=== PATIENT | female | born 1960 | race African-American/Black ===

== ENCOUNTER 2018-06-22 01:07 | Inpatient (IN) | payer MEDICARE, MEDICAID ==
[2018-06-22] MEDS ORDERED: Heparin 25,000 units/D5W 500 ML ONE (01:16)
[2018-06-22 02:18] LABS: Troponin I 9.531 ng/mL (< 0.028)
[2018-06-22 02:48] LABS: Lactic Acid 1.8 mmol/L (0.5-2.2)
--- NOTE | 2018-06-22 02:48 | PDOC.FPRHP ---
- History of Present Illness Chief Complaint: NSTEMI History of Present Illness: Patient is a 57YO AAF with a PMH significant for a CVA w/ R-sided hemiplegia & dysphagia, a known seizure disorder, DM, HLD, and HTN who was transferred from [facility] in [place] after being found to have a troponin of 4.05. Per EMS & ED records , EMS in [place] was called to [facility] where the patient resides due to seizure activity. The patient was given 2.5mg of versed and has 3 seizures in the ambulance on the way to the Ed in [place]. Once she arrived at the ED she was given 2g IV keppra and had no further seizure activity. Labs were significant for a lactate of 3.1, a BG level of 426, and a troponin of 4.05. Her ECG on presentation to our ED was negative for any acute ischemic changes but her repeat troponin level was even higher at 9.531. She was then continued on a heparin drip and admitted for evaluation and management of an NSTEMI as well as multiple metabolic derangements and AMS 2/2 postictal confusion vs. infection vs. NSTEMI vs. an acute intracranial process. ED Course: Patient was given 2g IV Keppra, one dose of IV Zosyn, 325mg ASA, & started on a heparin drip in the outside ED. - Allergies/Adverse Reactions Allergies Allergy/AdvReac Type Severity Reaction Status Date / Time iodine Allergy Verified 06/22/18 06:24 levofloxacin [From Levaquin] Allergy Verified 06/22/18 06:24 meperidine [From Demerol] Allergy Verified 06/22/18 06:24 vancomycin Allergy Verified 06/22/18 06:24 - Home Medications Medication Instructions Recorded Confirmed Type Ferrous Sulfate [Iron] 325 mg PO DAILY 11/11/16 11/11/16 History Lisinopril [Zestril] 5 mg PO DAILY 11/11/16 06/22/18 History Omeprazole 20 mg PO DAILY 11/11/16 11/11/16 History QUEtiapine Fumarate [SEROquel] 200 mg PO BID 11/11/16 06/22/18 History Sertraline HCl [Zoloft] 50 mg PO DAILY 11/11/16 06/22/18 History hydrOXYzine Pamoate 50 mg PO DAILY PRN 11/11/16 11/11/16 History metFORMIN [Glucophage] 500 mg PO BID-WM 11/11/16 11/11/16 History Amoxicillin/Potassium Clav 875 mg PO Q12HR #14 tab 11/27/16 Rx [Augmentin] Aspirin [Aspirin Chewable Tablet] 81 mg PO DAILY #30 tab 11/27/16 06/22/18 Rx Carvedilol [Coreg] 3.125 mg PO BID-WM tab 11/27/16 06/22/18 Rx Dronabinol [Marinol] 5 mg PO BID-AC #30 cap 11/27/16 Rx Pantoprazole [Protonix] 40 mg PO BID #60 pk 11/27/16 Rx Saccharomyces boulardii [Florastor] 250 mg PO BID #60 cap 11/27/16 Rx cloNIDine [Qhapuyqe-SAX-6 Patch] 0.1 mg TD Q7D patch 11/27/16 Rx metroNIDAZOLE [Flagyl] 500 mg PO TID #12 tab 11/27/16 Rx Atorvastatin Calcium 10 mg PO DAILY 06/22/18 06/22/18 History levETIRAcetam [Keppra Oral 1,000 mg PO QAM 06/22/18 06/22/18 History Solution] levETIRAcetam [Keppra] 2,000 mg PO HS 06/22/18 06/22/18 History risperiDONE [Risperdal] 1 mg PO BID 06/22/18 06/22/18 History - History PMHx: h/o CVA w/ residual R-sided hemiplegia & dysphagia, SLE, HTN, DM, HLD, CHF , GERD, Bipolar I, schizoaffective disorder, anxiety/depression, OA, h/o DVT PSHx: C/S, parathyroidectomy, vein ligation & stripping, IVC filter placement FHx: N/A Social: Unable to obtain 2/2 AMS. - Review of Systems ROS unobtainable: due to mental status - Vital signs BP: 134/91 HR: 113 RR: 21 Tmax: 99.6F Pox: 95% on RA Wt: 66kg - Physical Exam Constitutional: NAD HEENT: PERRLA, grossly normal vision, grossly normal hearing, other (Unable to assess EOM or oropharynx as patient was unable to follow commands.) Neck: FROM Heart: RRR, normal S1/S2, no murmurs/rubs/gallops, pulses present, no edema Lungs: CTAB, no respiratory distress, good air movement, no rales/rhonchi, no wheezing Abdomen: soft, non-tender, bowel sounds present, no masses/distention Musculoskeletal: normal structure, other (decreased ROM in right extremities) Neurological: normal sensation, other (R-sided hemiplegia noted in right extremities. Otherwise, no obvious focal deficits noted on exam.) Skin: good turgor, no jaundice, other (large hypopigmented patch over right congregational) Heme/Lymphatic: no unusual bruising or bleeding Psychiatric: other (Unable to assess as patient was not responding appropriately to questions and unable to follow commands.) FMR H&P: Results - Labs Result Diagrams: 06/22/18 07:53 06/22/18 01:52 - Radiology Interpretation Chest x-ray Status: report reviewed by me (Possible LLL PNA per outside ED CXR w/ B/L bibasilar atelectasis) CT scan - head Status: report reviewed by me (No acute changes.) FMR H&P: A/P - Problem List (1) NSTEMI (non-ST elevated myocardial infarction) Current Visit: Yes Status: Acute Code(s): I21.4 - NON-ST ELEVATION (NSTEMI) MYOCARDIAL INFARCTION (2) Status epilepticus Current Visit: Yes Status: Acute Code(s): G40.901 - EPILEPSY, UNSP, NOT INTRACTABLE, WITH STATUS EPILEPTICUS (3) Lactic acidosis Current Visit: Yes Status: Acute Code(s): E87.2 - ACIDOSIS (4) Hyperglycemia Current Visit: Yes Status: Acute Code(s): R73.9 - HYPERGLYCEMIA, UNSPECIFIED (5) Abnormal cardiac enzyme level Current Visit: No Status: Acute Code(s): R74.8 - ABNORMAL LEVELS OF OTHER SERUM ENZYMES Comment: prob due to demand ischemia/acute CVA (6) Seizure disorder Current Visit: Yes Status: Acute Code(s): G40.909 - EPILEPSY, UNSP, NOT INTRACTABLE, WITHOUT STATUS EPILEPTICUS (7) DM type 2 (diabetes mellitus, type 2) Current Visit: No Status: Chronic (8) Altered mental status Current Visit: Yes Status: Acute Code(s): R41.82 - ALTERED MENTAL STATUS, UNSPECIFIED (9) Schizoaffective disorder Current Visit: Yes Status: Acute Code(s): F25.9 - SCHIZOAFFECTIVE DISORDER, UNSPECIFIED (10) Bipolar 1 disorder Current Visit: Yes Status: Acute Code(s): F31.9 - BIPOLAR DISORDER, UNSPECIFIED (11) HTN (hypertension) Current Visit: Yes Status: Acute Code(s): I10 - ESSENTIAL (PRIMARY) HYPERTENSION (12) Hypertension Current Visit: No Status: Chronic Code(s): I10 - ESSENTIAL (PRIMARY) HYPERTENSION Qualifiers: Hypertension type: essential hypertension Qualified Code(s): I10 - Essential (primary) hypertension (13) HLD (hyperlipidemia) Current Visit: Yes Status: Acute Code(s): E78.5 - HYPERLIPIDEMIA, UNSPECIFIED (14) GERD (gastroesophageal reflux disease) Current Visit: Yes Status: Acute Code(s): K21.9 - GASTRO-ESOPHAGEAL REFLUX DISEASE WITHOUT ESOPHAGITIS (15) SLE (systemic lupus erythematosus) Current Visit: Yes Status: Acute Code(s): M32.9 - SYSTEMIC LUPUS ERYTHEMATOSUS, UNSPECIFIED (16) History of CVA with residual deficit Current Visit: Yes Status: Acute Code(s): I69.30 - UNSPECIFIED SEQUELAE OF CEREBRAL INFARCTION (17) Anxiety Current Visit: Yes Status: Acute Code(s): F41.9 - ANXIETY DISORDER, UNSPECIFIED (18) Depression Current Visit: Yes Status: Acute Code(s): F32.9 - MAJOR DEPRESSIVE DISORDER , SINGLE EPISODE, UNSPECIFIED - Plan Ms. Daniel is a 57YO AAF with a PMH significant for a CVA w/ residual R-sided hemiplegia & dysphagia, HTN, HLD, DMII, and a known seizure disorder who was transferred from [facility] in [place] after being found to have had an NSTEMI w/ a troponin elevated at 4.05. 1. NSTEMI: - troponin at outside ED was 4.05 & repeat trop at our facility was 9.531. - Will continue heparin drip that was started in the outside ED & hold 325 of ASA for now. - Will start on a high potency statin. Fasting AM lipid panel ordered. - Will consult cardiology to assess the need for possible operative intervention. - Will continue trending troponins. - Will continue topical nitroglycerin & resume home BB dose. 2. Status Epilepticus: - s/p 2.5mg versed & 2g IV keppra w/ no sz activity since. - Will order dilantin and keppra levels as these are her home medications to ensure compliance. - Will order seizure precautions and resume home medications. 3. Lactic Acidosis: - Lactate elevated at 3.1 in outside ED. - Likely 2/2 seizures. - Downtrended to 1.8 in our ED. - Will continue to monitor. 4. Hyperglycemia: - BG of 426 in outside ED that came down to 238 w/o any intervention. - Will resume home DM medications & order moderate SSI for BG control. 5. AMS: - uncertain etiology at this point but could be 2/2 a number of things including NSTEMI vs. infection vs. psychiatric disorder vs. iatrogenic from medications vs. postictal confusion. - Will continue to treat NSTEMI as outlined above. Will resume home psych meds. Will resume home seizure meds. Infection not as high on DDx but will continue to trend WBC count and monitor vitals. 6. h/o seizure disorder: - Will resume home meds. 7. h/o CVA w/ R-sided hemiplegia & dysphagia: - Aware, speech therapy consult ordered and NPO in the meantime. - Starting in high potency statin therapy & holding high dose ASA for now since patient is on Heparin drip. 8. HTN: - Will resume home meds. 9. HLD: - Starting in high potency statin therapy. 10. GERD: - will resume home meds. 11. schizoaffective disorder, bipolar 1, depression/anxiety: - Amando resume home meds. 12. DM: - Will resume home meds & moderate SSI. - A1c pending. 13. SLE: - Aware, will resume home meds. 14. CHF: - Will resume home meds. 15. h/o DVT: - Aware, on heparin drip and s/p IVC filter placement. FMR H&P: Upper Level - Pertinent history Hayley Daniel is 57 year old female with a past history of CVA who was transferred from [facility] due to NSTEMI. [facility] called EMS due to pt having a seizure. Per notes, she had 3 more seizures en route to the hospital. At [facility] she was found to have a troponin of 4 at 1999 which prompted the transfer. Prior to transfer patient received Keppra 2g and has no further seizures. She was also started on a heparin drip prior to transfer. Other labs of note: Lactate 3.1, blood sugar of 426. - Pertinent findings Current labs as above. Physical Exam: General: pt is alert; able to follow some commands. Answers questions inappropriately, responding "yes ma'am to all question" Heart: regular rate and rhythm: no murmurs, rubs, or gallops. Lungs: clear to auscultation bilaterally. Extremities: moves left-sided extremities well. - Plan Date/Time: 06/22/18 0243 IBetty, have evaluated this patient and agree with findings/plan as outlined by senior international tax manager resident. Pertinent changes/additions are listed here. NSTEMI - will admit to IMCU. - continue Heparin drip, ASA, nitro, Beta osvaldo - will consult cards in AM Status Epilepticus. - resolved. - potential causes include NSTEMI, organic brain disease, CVA - will resume pt's home medications. - MRI - Seizure precautions Altered Mental Status - differentials include: NSTEMI, post-ictal/Khai's palsy, medications - discussed with [facility] staff and per them, patient is conversant and interactive at baseline. - will continue to treat potential underlying causes. Will monitor. Lactic acidosis - likely secondary to seizures. - will repeat.
[2018-06-22 02:56] LABS: ALT (SGPT) 26 U/L (8-55); AST (SGOT) 60 U/L (5-34); Albumin 3.5 g/dL (3.5-5.0); Alkaline Phosphatase 296 U/L (40-150); Anion Gap 16 mmol/L (10-20); BUN (Urea Nitrogen) 14 mg/dL (9.8-20.1); Bilirubin, Total 0.2 mg/dL (0.2-1.2); Calc. Creatinine Clearance 0 mL/min (70-130); Calcium 8.5 mg/dL (7.8-10.44); Carbon Dioxide 15 mmol/L (22-29); Chloride 105 mmol/L (98-107); Estimated GFR-MDRD Greater than 90; Globulin 4.5 g/dL (2.4-3.5); Glucose 238 mg/dL (70-105); Sodium 131 mmol/L (136-145)
[2018-06-22] MEDS ORDERED: Nitroglycerin 2% Ointment 1 INCH/1 GM Packet ONE (03:20)
[2018-06-22] MEDS ORDERED: Heparin 10,000 UNITS/ 10 ML VIAL SLOW IVP PRN (03:30)
--- NOTE | 2018-06-22 03:38 | PDOC.EVN ---
Event Note - Event Note Event Note: 57 year old female with h/o CVA with residual right hemiparesis, DM, HTN, seizure d/o taken to ER in [place] from her ID due to seizures. Patient found seizing in ID and sent to ER. Had 3 seizures in ambulance per record. Given versed and then Keppra in with no further seizures. On evaluation in ER found to have elevated troponin=4.05. Patient unable to verbalize any pain or other complaints. Uncertain what her baselline communication function is. PMH/ PSH/Meds/All reviewed and agree with resident's documentation. Afebrile BP 150 /100 P102 RR 18 O2=96% Exam repeated by me and agree with resident's findings. Labs: CT brain- no acute changes. Trop I 4.05 -> 9.531 Jq=156, K=5.0 , BUN/Cr=14/0.68, Cfgt=739, Lactic acid = 3.1 -> 1.8, a;k ynxs=397 AST=60, ALT= 26, aPTT=47.3 A/P: 1) Seizures- pt loaded with keppra in [facility]; check keppra and dilantin level. Continue home meds. 2) NSTEMI- pt on beta osvaldo. Will place on NTP. Serial cardiac enzymes and EKG , Placed on heparin drip. Cardiology consulted. Check echo. 3) Type 2 DM with hyperglycemia- appears to be diet controlled based on medication list from ID. Will check HgbA1c. Serial accuchecks.
[2018-06-22] MEDS ORDERED: Heparin 25,000 units/D5W 500 ML IV SCH (05:15)
[2018-06-22] MEDS ORDERED: Heparin 10,000 UNITS/ 10 ML VIAL SLOW IVP SCH (05:15)
[2018-06-22 05:57] LABS: Troponin I 9.539 ng/mL (< 0.028)
[2018-06-22] MEDS ORDERED: HumaLOG 300 UNITS/3 ML VIAL SC PRN (06:54)
[2018-06-22] MEDS ORDERED: Nitroglycerin 0.4 MG TAB (25 Tab Bottle) SL PRN (06:54)
[2018-06-22] MEDS ORDERED: Dextrose 5% in Water 1,000 ML IV PRN (06:54)
[2018-06-22] MEDS ORDERED: Dextrose 50% Abboject 50 ML SYRINGE SLOW IVP PRN (06:54)
--- NOTE | 2018-06-22 06:58 | PDOC.FM ---
- Subjective Subjective: 57 yo F transferred here last night for NSTEMI identified in the [place] ED after being found seizing at her nursing facility. Pt got multiple doses of Versed in order to break the seizure by EMS. Since transfer there has been no additional seizure activity. It is unclear what her baseline functional status is however, today pt can only respond to all questions with the same 1 word response which is difficult to understand. There were no other acute events over night - Objective MAR Reviewed: Yes Result Diagrams: 06/22/18 01:52 EKG Reviewed by me: Yes Phys Exam - Physical Examination Constitutional: NAD HEENT: PERRLA, moist MMs Neck: no nodes, full ROM L EJ in place, L side of neck has increased fullness as compared to R Respiratory: clear to auscultation bilateral Cardiovascular: RRR, no significant murmur Gastrointestinal: soft, non-tender, positive bowel sounds Musculoskeletal: no edema, pulses present R arm contracted. Unable to determine sensation Deviation from normal: Due to an inability to communicate, unable to determine Skin: no rash, normal turgor Dx/Plan (1) NSTEMI (non-ST elevated myocardial infarction) Code(s): I21.4 - NON-ST ELEVATION (NSTEMI) MYOCARDIAL INFARCTION Status: Acute (2) Seizure disorder Code(s): G40.909 - EPILEPSY, UNSP, NOT INTRACTABLE, WITHOUT STATUS EPILEPTICUS Status: Acute (3) DM type 2 (diabetes mellitus, type 2) Status: Chronic (4) Hypertension Code(s): I10 - ESSENTIAL (PRIMARY) HYPERTENSION Status: Chronic Qualifiers: Hypertension type: essential hypertension Qualified Code(s): I10 - Essential (primary) hypertension
[2018-06-22] MEDS ORDERED: Carvedilol 3.125 MG TAB PO SCH (08:00)
[2018-06-22 08:11] LABS: #Basophils 0.1 thou/uL (0.0-0.2); #Lymphocytes 2.1 thou/uL (1.20-3.40); #Monocytes 0.5 thou/uL (0.11-0.59); #Neutrophils 9.2 thou/uL (1.40-6.50); %Basophils 0.7 % (0.0-1.0); %Eosinophils 0.2 % (0.0-10.0); %Monocytes 4.2 % (0.0-10.0); %Neutrophils 76.9 % (42.0-75.0); Hemoglobin 11.8 g/dL (12.0-16.0); Mean Corpuscular HGB CONC 32.4 g/dL (32.0-36.0); Mean Corpuscular Hemoglobin 30.8 pg (27.0-31.0); Mean Corpuscular Volume 94.9 fL (78.0-98.0); Mean Platelet Volume 9.6 fL (7.4-10.4); Platelet Count 194 thou/uL (130-400); RBC Distribution Width 12.1 % (11.5-14.5); Red Blood Cell (RBC) Count 3.83 mill/uL (4.20-5.40); White Blood Cell (WBC) Count 11.9 thou/uL (4.8-10.8)
[2018-06-22 08:28] LABS: Hemoglobin A1c 5.3 % (4.0-6.0)
[2018-06-22 08:35] LABS: Cardiac Risk 2.8 (Less than 4.5); Dilantin 9.2 ug/mL (10.0-20.0)
[2018-06-22 08:46] LABS: Troponin I 9.546 ng/mL (< 0.028)
[2018-06-22] MEDS ORDERED: Atorvastatin Calcium 10 MG TAB PO SCH (09:00)
[2018-06-22] MEDS: Carvedilol 6.25 MG TAB PO SCH ×2 (10:43→16:37)
[2018-06-22] MEDS: levETIRAcetam 500 MG TAB PO SCH ×2 (10:44→20:41)
[2018-06-22] MEDS: Atorvastatin Calcium 40 MG TAB PO SCH (10:44)
[2018-06-22] MEDS: Pantoprazole 40 MG GRANULES PACKET PO SCH ×2 (10:45→20:42)
[2018-06-22] MEDS: risperiDONE 1 MG TAB PO SCH ×2 (10:45→20:42)
[2018-06-22] MEDS: Saccharomyces boulardii 250 MG CAP PO SCH ×2 (10:45→20:41)
[2018-06-22] MEDS: Lisinopril 5 MG TAB PO SCH (10:45)
[2018-06-22] MEDS: Nitroglycerin 2% Ointment 1 INCH/1 GM Packet TOP SCH ×2 (12:24→18:32)
--- NOTE | 2018-06-22 13:25 | CON ---
DATE OF CONSULTATION: 06/22/2018 Ms. Daniel is a 57-year-old female who sustained a cerebrovascular accident in the past. She lives in a [facility] in [place]. She developed seizures and subsequently had been admitted to the hospital. She was hospitalized here in 11/2016, but has not been in the hospital here prior to that. PAST MEDICAL HISTORY: Remarkable for, 1. Lupus. 2. History of cardiomyopathy. 3. History of CVA. 4. History of DVT. 5. History of diabetes. 6. History of hypertension. 7. History of a seizure disorder. 8. History of gastric ulcer in 11/2016 when she was in the hospital. 9. History of enterococcus bacteremia in 11/2016. FAMILY HISTORY: Negative for lung disease in early age. SOCIAL HISTORY: Not obtained. REVIEW OF SYSTEMS: 10 point system review completed, otherwise not accurately obtainable. PHYSICAL EXAMINATION: VITAL SIGNS: The patient is afebrile, heart rate is 102, blood pressure 161/98 , respiratory rate is in the 20s. HEENT: Pupils are equal and react. NEUROLOGIC: She would nod to questions, but was nonverbal when I interacted with her. NECK: Supple. She had no lymphadenopathy. LUNGS: Clear anteriorly. HEART: Regular rhythm. S1 and S2 are normal. No gallop was heard. A soft 1-2 /6 systolic murmur is heard. ABDOMEN: Soft and nontender. EXTREMITIES: Without clubbing, cyanosis or edema. She is right hemiplegic. LABORATORY DATA: White count 11.9, hemoglobin 11.8, platelets 194,000. Sodium 131, potassium 5, chloride 105, bicarb 15, anion gap was 11, BUN 14, creatinine was 0.68. Troponin was 9. IMPRESSION: 1. Seizure disorder. 2. Probably stress mediated troponin release. 3. History of cerebrovascular accident. 4. History of multiple other medical problems. She appears to be stable at this point in time. If she is documented to be seizure free for another 24-48 hours, she can go back to her [facility]. She has seen Dr. Paul in the past and he probably should be notified of her admission. This is a 50 minute consult with greater than 50% of time spent on unit with coordination of care. JESSICA
[2018-06-22] MEDS: Enoxaparin Sodium 60 MG/0.6 ML SYRINGE SC SCH (20:41)
[2018-06-22] MEDS: Phenytoin 125 MG/5 ML UDCUP PO SCH (21:26)
[2018-06-22 23:14] LABS: Troponin I 7.541 ng/mL (< 0.028)
--- NOTE | 2018-06-22 23:50 | CON ---
DATE OF CONSULTATION: 06/22/2018 REASON FOR CONSULTATION: Elevated troponins. HISTORY OF PRESENT ILLNESS: Ms. Daniel is a 57-year-old -[place] female , who comes to the hospital for seizures. She was at a assisted secondary to history of CVA and right-sided hemiplegia and dysphagia. She was found to be having several seizures and she was brought in to the [facility] ER in [place]. She was treated with Versed and IV Keppra, seizure activity improved. However, blood work was drawn and showed an elevated troponin, so she was transferred over for further evaluation and care. She eventually had troponins drawn here, they have been in the 9 range. On my evaluation, Ms. Daniel is unable to give me any history. When I ask any questions, she only says the word smell and that is what she answers for any questions. PAST MEDICAL HISTORY: 1. History of cerebrovascular accident with right-sided hemiplegia and dysphagia. 2. Seizure disorder. 3. Type 2 diabetes. 4. Hyperlipidemia. 5. Hypertension. 6. Lupus erythematous systemic. 7. Gastroesophageal reflux disease. 8. Bipolar disorder. 9. Schizoaffective disorder. 10. Anxiety/depression. 11. Osteoarthritis. 12. History of DVTs in the past. PAST SURGICAL HISTORY: 1. Parathyroidectomy. 2. Vein ligation and stripping. 3. IVC filter placement. FAMILY HISTORY: Noncontributory. SOCIAL HISTORY: Lives in a assisted. Unable to obtain currently as she is not responding adequately. REVIEW OF SYSTEMS: Unobtainable secondary to mental status changes. PHYSICAL EXAMINATION: VITAL SIGNS: Temperature 98.5, pulse 105, respiration rate 26, satting 96% on room air, blood pressure 135/87. GENERAL: Awake and alert, but she does not respond appropriately to questions. She only says the words smell, but when I asked her if I could listen to her heart she said yup. HEENT: Normocephalic, atraumatic. NECK: Supple. LUNGS: Clear. CARDIOVASCULAR: S1 and S2. No S3 or S4. There is a grade 2/6 systolic murmur in right upper sternal border. ABDOMEN: Soft, positive bowel sounds. EXTREMITIES: No edema. SKIN: Warm and dry. LABORATORY WORK: Reviewed. White count of 11, hemoglobin of 11, hematocrit of 36, platelet count of 194. Coags were reviewed. Chemistries were reviewed. Sodium 131, potassium is 5.0, chloride 105, carbon dioxide 15, anion gap of 16, BUN 14, creatinine 0.68, GFR greater than 90, glucose 238, troponin was 9.5, then 9.5, then 9.5, then 10.3 with an albumin of 3.5. Triglycerides of 71, cholesterol of 153, LDL of 84, HDL of 55. Procalcitonin was 1.12. Phenytoin level was low. Keppra level was normal. EKG was reviewed, nonspecific ST and T-wave changes. No ST elevations are seen. She is in sinus rhythm. ASSESSMENT AND PLAN: 1. Non-ST elevation SD. 2. Seizure disorder. 3. Lupus. 4. Altered mentation. 5. Possible psychosis. PLAN: 1. At this point in time, she is unable to complain of any chest pain or tightness. Her initial presentation was a seizure and her troponin elevation is steady, high, more consistent with demand type of event versus an actual ischemic event. At this time, she is not a good candidate for a heart catheterization given her altered mentation. We will get an echocardiogram and assess LV function, valvular structures and I would recommend at least 48 hours of full anticoagulation. 2. Neurology already on board for her altered mentation as this may be a psychosis more than an actual episode with her brain. MRI is also pending. 3. We will switch her heparin to Lovenox subcutaneous. 4. No plans of any intervention at this time. Thank you for letting us to participate in the care of your patient. We will follow. JESSICA
[2018-06-23] MEDS: Nitroglycerin 2% Ointment 1 INCH/1 GM Packet TOP SCH ×5 (00:53→23:58)
[2018-06-23 04:26] LABS: #Lymphocytes 2.4 thou/uL (1.20-3.40); #Monocytes 0.8 thou/uL (0.11-0.59); #Neutrophils 6.5 thou/uL (1.40-6.50); %Basophils 0.1 % (0.0-1.0); %Eosinophils 0.3 % (0.0-10.0); %Lymphocytes 24.5 % (21.0-51.0); %Monocytes 8.2 % (0.0-10.0); %Neutrophils 66.9 % (42.0-75.0); Hemoglobin 10.8 g/dL (12.0-16.0); Mean Corpuscular HGB CONC 34.2 g/dL (32.0-36.0); Mean Corpuscular Hemoglobin 31.7 pg (27.0-31.0); Mean Corpuscular Volume 92.7 fL (78.0-98.0); Mean Platelet Volume 9.6 fL (7.4-10.4); Platelet Count 166 thou/uL (130-400); Red Blood Cell (RBC) Count 3.42 mill/uL (4.20-5.40); White Blood Cell (WBC) Count 9.7 thou/uL (4.8-10.8)
[2018-06-23 04:42] LABS: ALT (SGPT) 34 U/L (8-55); AST (SGOT) 67 U/L (5-34); Alkaline Phosphatase 239 U/L (40-150); Anion Gap 13 mmol/L (10-20); BUN (Urea Nitrogen) 15 mg/dL (9.8-20.1); Bilirubin, Total 0.4 mg/dL (0.2-1.2); Calc. Creatinine Clearance 86 mL/min (70-130); Calcium 8.4 mg/dL (7.8-10.44); Carbon Dioxide 20 mmol/L (22-29); Chloride 95 mmol/L (98-107); Estimated GFR-MDRD Greater than 90; Globulin 4.2 g/dL (2.4-3.5); Glucose 154 mg/dL (70-105); Potassium 4.1 mmol/L (3.5-5.1); Protein, Total 7.2 g/dL (6.0-8.3); Sodium 124 mmol/L (136-145)
--- NOTE | 2018-06-23 06:46 | PDOC.FM ---
- Subjective Subjective: 57 yo F here for NSTEMI following seizure activity. Over night there were no acute events. Pt is more communicative this morning, but will not answer most questions appropriately. Unable to obtain ROS. She is found awake and comfortable in bed. - Objective MAR Reviewed: Yes Vital Signs & Weight: Vital Signs (12 hours) Temp Pulse Resp BP Pulse Ox 06/23/18 03:49 98.4 F 89 18 106/59 L 99 06/23/18 00:00 99.0 F 89 16 96/54 L 100 06/22/18 20:00 99.9 F H 101 H 16 100 06/22/18 19:53 99.9 F H 101 H 16 134/81 100 Weight Weight 66.769 kg I&O: 06/21/18 06/22/18 06/23/18 06:59 06:59 06:59 Intake Total 370 Balance 370 Result Diagrams: 06/23/18 03:37 06/23/18 03:37 <Grupo Hernandez - Last Filed: 06/23/18 06:45> - Objective Vital Signs & Weight: Vital Signs (12 hours) Temp Pulse Resp BP BP Pulse Ox 06/23/18 15:17 97.8 F 81 16 111/65 99 06/23/18 11:05 98.2 F 86 17 98/59 L 100 06/23/18 08:00 98.5 F 90 17 100 06/23/18 07:54 125/68 06/23/18 07:53 90 125/68 06/23/18 07:20 98.5 F 90 17 125/68 100 Weight Weight 66.769 kg I&O: 06/22/18 06/23/18 06/24/18 06:59 06:59 06:59 Intake Total 370 Balance 370 Result Diagrams: 06/23/18 03:37 06/23/18 03:37 <Angelica Bravo - Last Filed: 06/23/18 16:21> Phys Exam - Physical Examination Constitutional: NAD HEENT: moist MMs, sclera anicteric Neck: no nodes, no JVD Respiratory: clear to auscultation bilateral Cardiovascular: RRR, no significant murmur Gastrointestinal: soft, non-tender, no distention, positive bowel sounds Musculoskeletal: no edema, pulses present Contracted R arm. Moves other limbs. Unable to assess further dt mental status Deviation from normal: Pt would not appropriately answer questions. Only asking for the time. Skin: no rash <Grupo Hernandez - Last Filed: 06/23/18 06:45> Dx/Plan (1) Hyponatremia Code(s): E87.1 - HYPO-OSMOLALITY AND HYPONATREMIA Status: Acute (2) Elevated AST (SGOT) Code(s): R74.0 - NONSPEC ELEV OF LEVELS OF TRANSAMNS & LACTIC ACID DEHYDRGNSE Status: Acute (3) Elevated alkaline phosphatase level Code(s): R74.8 - ABNORMAL LEVELS OF OTHER SERUM ENZYMES Status: Acute (4) NSTEMI (non-ST elevated myocardial infarction) Code(s): I21.4 - NON-ST ELEVATION (NSTEMI) MYOCARDIAL INFARCTION Status: Acute (5) Seizure disorder Code(s): G40.909 - EPILEPSY, UNSP, NOT INTRACTABLE, WITHOUT STATUS EPILEPTICUS Status: Acute (6) DM type 2 (diabetes mellitus, type 2) Status: Chronic (7) Hypertension Code(s): I10 - ESSENTIAL (PRIMARY) HYPERTENSION Status: Chronic Qualifiers: Hypertension type: essential hypertension Qualified Code(s): I10 - Essential (primary) hypertension - Plan Plan: Hyponatremia - could be contributing to AMS. Serum/urine osm and urine Na pending. Pt appears to be euvolemic Elevated Alk phost and AST - unclear etiology. GGT pending. Further work up pending results, this can likely be done in out patient setting. AMS - Pt has started to be more communicative and will answer some questions appropriately. This points to a psych etiology rather than Neuro. Restart home antipsychotics NSTEMI - Cards is following. Trops are down trending. Pt is on therapeutic lovenox. Pt ready to move to medical Hypertension - Restart home meds Hx of CVA - continue statin SLE - appears to be controlled at this time dCHF - currently maintaining O2 sat, no concerns for acute exacerbation Schizoaffective disorder - restart home meds. Likely cause of current AMS Bipolar disorder - home meds HLD - continue statin GERD - home meds Dispo: Pt is medically stable, will work up hyponatremia. Remaining issues can be followed outpatient. Likely dc in am <Grupo Hernandez - Last Filed: 06/23/18 06:45> Attending Addendum - Attending Addendum Date/Time: 06/23/18 1610 I personally evaluated the patient and discussed the management with Dr. Roca I agree with the History, Examination, Assessment and Plan documented above with any addition or exceptions noted below. Seizure d/o- no recurrent seizures. Still intermittently altered- multifactoral from schizophrenia/schizoeffective disorder, hyponatremia and possible CVA. Fluid restrict and give NS. NSTEMI- appreciate cards recs h/o CVA- stable with no new motor deficits but expressive aphasia- will get MRI. Expect d/c tomorrow or Thursday. <Angelica Bravo - Last Filed: 06/23/18 16:21>
[2018-06-23] MEDS: risperiDONE 1 MG TAB PO SCH ×2 (07:52→20:48)
[2018-06-23] MEDS: levETIRAcetam 500 MG TAB PO SCH ×2 (07:52→20:47)
[2018-06-23] MEDS: Saccharomyces boulardii 250 MG CAP PO SCH ×2 (07:52→20:48)
[2018-06-23] MEDS: Lisinopril 5 MG TAB PO SCH (07:53)
[2018-06-23] MEDS: Atorvastatin Calcium 40 MG TAB PO SCH (07:53)
[2018-06-23] MEDS: Carvedilol 6.25 MG TAB PO SCH ×2 (07:54→17:06)
[2018-06-23] MEDS: Pantoprazole 40 MG GRANULES PACKET PO SCH ×2 (07:55→20:47)
[2018-06-23] MEDS: Enoxaparin Sodium 60 MG/0.6 ML SYRINGE SC SCH ×2 (07:55→20:47)
[2018-06-23] MEDS: Sodium Chloride 0.9% 1,000 ML IV SCH ×2 (11:02→21:53)
--- NOTE | 2018-06-23 12:01 | PRG ---
DATE OF SERVICE: 06/23/2018 SUBJECTIVE: She is in no distress. OBJECTIVE: VITAL SIGNS: She is afebrile, heart rate is 90, respiratory rate 17, oximetry is 100% on room air, b lood pressure 98/59. LUNGS: Clear. HEART: Regular rhythm. ABDOMEN: Soft. NEUROLOGICAL: She is still right hemiplegic. Obviously, she also has difficulty finding words. LABORATORY DATA: White count is 9.7, hemoglobin 10.8, platelets 166,000. Sodium 124, potassium 4.1, chloride 95, bicarbonate 20, BUN 15, creatinine 0.75, glucose 154. IMPRESSION: 1. Status post seizures. 2. Abnormal troponin, that likely is just stress mediated. 3. History of cerebrovascular accident. 4. History of lupus. 5. History of deep venous thrombosis in the past. 6. History of inferior vena cava filter. 7. Right hemiplegia. PLAN: Continue supportive care. Once she is documented to be stable on p.o. medicine, she will be t ransferred back to her [facility], which should be hopefully within 24-48 hours. She is stable to move out of the Intermediate Care Unit in my opinion. She is on Zoloft. 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 She probably should just be fluid restricted for now.
--- NOTE | 2018-06-23 12:44 | PDOC.CTH ---
Cardiology Progress Note - Subjective She is still confused but able to respond yes or no questions but she quickly starts to repeat herself. - Objective Vital Signs Temp Pulse Resp BP BP Pulse Ox 06/23/18 11:05 98.2 F 86 17 98/59 L 100 06/23/18 08:00 98.5 F 90 17 100 06/23/18 07:54 125/68 06/23/18 07:53 90 125/68 06/23/18 07:20 98.5 F 90 17 125/68 100 06/23/18 03:49 98.4 F 89 18 106/59 L 99 Weight 147 lb 3.2 oz 06/22/18 06/23/18 06/24/18 06:59 06:59 06:59 Intake Total 370 Balance 370 - Physical Examination General/Neuro: NAD Neck: no JVD present Lungs: CTA, unlabored respirations Heart: RRR Abdomen: NT/ND Extremities: other: (no edema) - Telemetry Telemetry Rhythm: NSR - Labs Result Diagrams: 06/23/18 03:37 06/23/18 03:37 Troponin/CKMB Troponin I 7.541 ng/mL (< 0.028) H* 06/22/18 22:38 - Assessment/Plan 1. NSTEMI 2. Seizures 3. Hyponatremia 4. Lupus 5. AMS PLAN: - Continue lovenox full dose for now. - Continue conservative therapy until mentation improves. - MRI pending.
--- NOTE | 2018-06-23 13:55 | MRI ---
MRI BRAIN WITHOUT CONTRAST: Date: 06/23/18 HISTORY: Altered mental status. COMPARISON: 11/14/16. FINDINGS: There is encephalomalacia and gliosis in the left parietooccipital lobe consistent with old infarctio n. No restricted diffusion is seen. There are changes of cortical atrophy and chronic small vessel is chemic disease. The ventricular size is appropriate and the basilar cisterns are patent. IMPRESSION: 1. No evidence of acute intracranial process. 2. Cortical atrophy. 3. Chronic small vessel ischemic disease. 4. Old left parietooccipital infarction. POS: H
[2018-06-23 18:30] LABS: Anion Gap 16 mmol/L (10-20); BUN (Urea Nitrogen) 16 mg/dL (9.8-20.1); Calc. Creatinine Clearance 88 mL/min (70-130); Calcium 8.2 mg/dL (7.8-10.44); Carbon Dioxide 15 mmol/L (22-29); Chloride 99 mmol/L (98-107); Estimated GFR-MDRD Greater than 90; Glucose 139 mg/dL (70-105); Potassium 3.7 mmol/L (3.5-5.1); Sodium 126 mmol/L (136-145)
[2018-06-23] MEDS: Acetaminophen 325 MG TAB PO PRN (20:45)
[2018-06-23] MEDS: Phenytoin 125 MG/5 ML UDCUP PO SCH (20:47)
[2018-06-24 00:46] LABS: Anion Gap 14 mmol/L (10-20); BUN (Urea Nitrogen) 15 mg/dL (9.8-20.1); Calc. Creatinine Clearance 96 mL/min (70-130); Carbon Dioxide 19 mmol/L (22-29); Chloride 103 mmol/L (98-107); Estimated GFR-MDRD Greater than 90; Glucose 123 mg/dL (70-105); Potassium 3.6 mmol/L (3.5-5.1); Sodium 132 mmol/L (136-145)
[2018-06-24] MEDS: Acetaminophen 325 MG TAB PO PRN (04:16)
[2018-06-24 06:00] LABS: ALT (SGPT) 34 U/L (8-55); AST (SGOT) 42 U/L (5-34); Albumin 2.8 g/dL (3.5-5.0); Alkaline Phosphatase 196 U/L (40-150); Anion Gap 14 mmol/L (10-20); BUN (Urea Nitrogen) 13 mg/dL (9.8-20.1); Bilirubin, Total 0.3 mg/dL (0.2-1.2); Calc. Creatinine Clearance 98 mL/min (70-130); Carbon Dioxide 18 mmol/L (22-29); Chloride 105 mmol/L (98-107); Estimated GFR-MDRD Greater than 90; Globulin 3.8 g/dL (2.4-3.5); Glucose 113 mg/dL (70-105); Protein, Total 6.6 g/dL (6.0-8.3); Sodium 134 mmol/L (136-145)
[2018-06-24 06:08] LABS: Potassium 2.9 mmol/L (3.5-5.1)
[2018-06-24 06:13] LABS: #Eosinphils 0.1 thou/uL (0.0-0.7); #Monocytes 0.8 thou/uL (0.11-0.59); #Neutrophils 3.6 thou/uL (1.40-6.50); %Basophils 0.1 % (0.0-1.0); %Eosinophils 0.8 % (0.0-10.0); %Monocytes 12.2 % (0.0-10.0); %Neutrophils 55.9 % (42.0-75.0); Hemoglobin 12.6 g/dL (12.0-16.0); Mean Corpuscular HGB CONC 31.2 g/dL (32.0-36.0); Mean Corpuscular Hemoglobin 28.8 pg (27.0-31.0); Mean Corpuscular Volume 92.2 fL (78.0-98.0); Mean Platelet Volume 11.5 fL (7.4-10.4); Platelet Count 97 thou/uL (130-400); RBC Distribution Width 12.3 % (11.5-14.5); Red Blood Cell (RBC) Count 4.39 mill/uL (4.20-5.40); White Blood Cell (WBC) Count 6.5 thou/uL (4.8-10.8)
[2018-06-24] MEDS: Nitroglycerin 2% Ointment 1 INCH/1 GM Packet TOP SCH (06:27)
[2018-06-24] MEDS: Sodium Chloride 0.9% 1,000 ML IV SCH ×2 (06:33→15:53)
[2018-06-24] MEDS ORDERED: Magnesium 2 GM/50 ML 2 GM in Premix Bag 1 BAG IVPB SCH (07:00)
--- NOTE | 2018-06-24 07:09 | PDOC.FM ---
- Subjective Subjective: 57 yo F here for NSTEMI and seizure. Yesterday she developed hyponatremia.This morning she complains of diffuse abdominal pain and diarrhea which onset last night. - Objective Vital Signs & Weight: Vital Signs (12 hours) Temp Pulse Resp BP Pulse Ox 06/24/18 03:50 97.9 F 85 22 H 133/63 100 06/24/18 00:00 97.8 F 78 18 107/65 100 06/23/18 20:00 97.6 F 82 20 99 06/23/18 19:47 97.6 F 82 20 119/75 99 Weight Weight 65.3 kg I&O: 06/23/18 06/24/18 06/25/18 06:59 06:59 06:59 Intake Total 370 1560 Balance 370 1560 Result Diagrams: 06/24/18 05:26 06/24/18 05:26 <Grupo Hernandez - Last Filed: 06/24/18 07:07> - Objective Vital Signs & Weight: Vital Signs (12 hours) Temp Pulse Resp BP BP Pulse Ox 06/24/18 11:27 97.5 F L 83 20 91/51 L 99 06/24/18 09:33 128/73 06/24/18 09:32 87 06/24/18 07:45 97.0 F L 87 23 H 100 06/24/18 07:33 97.0 F L 87 23 H 121/78 100 06/24/18 03:50 97.9 F 85 22 H 133/63 100 Weight Weight 65.3 kg I&O: 06/23/18 06/24/18 06/25/18 06:59 06:59 06:59 Intake Total 370 1560 Balance 370 1560 Result Diagrams: 06/24/18 05:26 06/24/18 05:26 <Angelica Bravo - Last Filed: 06/24/18 13:32> Phys Exam - Physical Examination Constitutional: NAD HEENT: moist MMs, 2+ tonsils Neck: full ROM Respiratory: clear to auscultation bilateral Cardiovascular: RRR, no significant murmur Gastrointestinal: soft, no distention, positive bowel sounds TTP in all quadrants Musculoskeletal: no edema Contracted right arm at baseline. Otherwise normal Deviation from normal: Will answer some questions, but quickly begins to repeat herself Skin: no rash, normal turgor <Grupo Hernandez - Last Filed: 06/24/18 07:07> Dx/Plan (1) Diarrhea Code(s): R19.7 - DIARRHEA, UNSPECIFIED Status: Acute (2) Hypokalemia Code(s): E87.6 - HYPOKALEMIA Status: Acute (3) Hypomagnesemia Code(s): E83.42 - HYPOMAGNESEMIA Status: Acute (4) Hyponatremia Code(s): E87.1 - HYPO-OSMOLALITY AND HYPONATREMIA Status: Acute (5) Elevated AST (SGOT) Code(s): R74.0 - NONSPEC ELEV OF LEVELS OF TRANSAMNS & LACTIC ACID DEHYDRGNSE Status: Acute (6) Elevated alkaline phosphatase level Code(s): R74.8 - ABNORMAL LEVELS OF OTHER SERUM ENZYMES Status: Acute (7) NSTEMI (non-ST elevated myocardial infarction) Code(s): I21.4 - NON-ST ELEVATION (NSTEMI) MYOCARDIAL INFARCTION Status: Acute (8) Seizure disorder Code(s): G40.909 - EPILEPSY, UNSP, NOT INTRACTABLE, WITHOUT STATUS EPILEPTICUS Status: Acute (9) DM type 2 (diabetes mellitus, type 2) Status: Chronic (10) Hypertension Code(s): I10 - ESSENTIAL (PRIMARY) HYPERTENSION Status: Chronic Qualifiers: Hypertension type: essential hypertension Qualified Code(s): I10 - Essential (primary) hypertension - Plan Plan: Diarrhea - 1 episode, non bloody. new onset overnight. Pt does not appear to volume depleted as she has normal vital signs. This could be contributing to the hypokalemia - C Diff and fecal lactoferrin are pending. - Associated abdominal pain is difficult to asses due to mental status. She states that she is TTP everywhere you touch to include back, however she is non tender when pressure is applied with stethoscope during auscultation. Hypokalemia - Replace today, likely secondary to diarrhea. Recheck this afternoon Hypomagnesemia - replace iv Hyponatremia - resolved Elevated Alk phost and AST - GGT is elevated indicating a hepatic source. AMA is pending. This can be followed outpatient AMS - Pt is more communicative today, however quickly begins to repeat herself. Home antipsychotics have been restarted. Unclear if this is her baseline. - MRI is negative for acute problem. Does show old CVA NSTEMI - Cards is following. Continue lovenox Hypertension - Restart home meds Hx of CVA - continue statin SLE - appears to be controlled at this time dCHF - currently maintaining O2 sat, no concerns for acute exacerbation Schizoaffective disorder - restart home meds. Likely cause of current AMS Bipolar disorder - home meds HLD - continue statin GERD - home meds Dispo: Pt doing well and will transfer to the [facility] when a bed is available. Likely ready to dc this afternoon after correction of K and pending results of C diff <Grupo Hernandez - Last Filed: 06/24/18 07:07> Attending Addendum - Attending Addendum Date/Time: 06/24/18 1330 I personally evaluated the patient and discussed the management with Dr. Hernandez I agree with the History, Examination, Assessment and Plan documented above with any addition or exceptions noted below. Seizure d/o- no seizure events since admission NSTEMI secondary to demand- appreciate cards input h/o CVA- no new symptoms and MRI with chronic changes only Diarrhea- check c diff if diarrhea returns Hypokalemia- replace and repeat in am [facility] am <Angelica Bravo - Last Filed: 06/24/18 13:32>
[2018-06-24] MEDS ORDERED: Magnesium 2 GM/NS 0.9% 100 ML 2 GM in Premix Bag 1 BAG IVPB SCH (07:15)
[2018-06-24] MEDS ORDERED: Potassium Chloride 20 MEQ TAB PO SCH ×2 (08:00→12:00)
[2018-06-24] MEDS: Lisinopril 5 MG TAB PO SCH (09:32)
[2018-06-24] MEDS: Enoxaparin Sodium 60 MG/0.6 ML SYRINGE SC SCH ×2 (09:32→21:06)
[2018-06-24] MEDS: risperiDONE 1 MG TAB PO SCH ×2 (09:33→21:07)
[2018-06-24] MEDS: levETIRAcetam 500 MG TAB PO SCH ×2 (09:33→21:06)
[2018-06-24] MEDS: Saccharomyces boulardii 250 MG CAP PO SCH ×2 (09:33→21:07)
[2018-06-24] MEDS: Carvedilol 6.25 MG TAB PO SCH ×2 (09:33→17:18)
[2018-06-24] MEDS: Atorvastatin Calcium 40 MG TAB PO SCH (09:33)
[2018-06-24] MEDS: Potassium Chloride 20 MEQ in Premix Bag 1 BAG IVPB SCH ×4 (09:34→15:53)
[2018-06-24] MEDS: Pantoprazole 40 MG GRANULES PACKET PO SCH ×2 (09:34→21:06)
[2018-06-24 11:55] LABS: EliA Vaculitis New Method **** NEW METHOD ****
--- NOTE | 2018-06-24 13:38 | PDOC.CTH ---
Cardiology Progress Note - Subjective Her mentation is slightly improved but when asked any yes or no questions she answers yes no matter what it is. Still confused. - Objective Vital Signs Temp Pulse Resp BP BP Pulse Ox 06/24/18 11:27 97.5 F L 83 20 91/51 L 99 06/24/18 09:33 128/73 06/24/18 09:32 87 06/24/18 07:45 97.0 F L 87 23 H 100 06/24/18 07:33 97.0 F L 87 23 H 121/78 100 06/24/18 03:50 97.9 F 85 22 H 133/63 100 Weight 143 lb 15.39 oz 06/23/18 06/24/18 06/25/18 06:59 06:59 06:59 Intake Total 370 1560 Balance 370 1560 - Physical Examination General/Neuro: other: (Sedated, intubated. ) Neck: no JVD present Lungs: CTA, unlabored respirations Heart: RRR Abdomen: NT/ND Extremities: + edema B (trace) - Telemetry Telemetry Rhythm: NSR - Labs Result Diagrams: 06/24/18 05:26 06/24/18 05:26 Troponin/CKMB Troponin I 7.541 ng/mL (< 0.028) H* 06/22/18 22:38 - Assessment/Plan 1. NSTEMI 2. Seizures 3. Hyponatremia/hypokalemia 4. Lupus 5. AMS PLAN: - May switch lovenox to DVT propylaxis. - Continue conservative therapy unless mentation improves. - MRI unremarkable for a new lesion suggesting this is all from psych issues. Old infarct expected from history. - Replace K. - Her troponin elevation could certainly be from CAD given her age and Lupus diagnosis. I do not think she is currently a candidate for an invasive approach given her acute psychosis. If this improves in the future she will have to follow up with me to schedule a LHC at that time, otherwise continue medical therapy. - Continue BB and ACEI, Aspirin, statin. - Follow up in the office in 1 month if mentation improves.
[2018-06-24 16:14] LABS: Anion Gap 14 mmol/L (10-20); BUN (Urea Nitrogen) 10 mg/dL (9.8-20.1); Calc. Creatinine Clearance 93 mL/min (70-130); Calcium 8.2 mg/dL (7.8-10.44); Carbon Dioxide 16 mmol/L (22-29); Chloride 106 mmol/L (98-107); Estimated GFR-MDRD Greater than 90; Glucose 137 mg/dL (70-105); Magnesium 1.4 mg/dL (1.6-2.6); Potassium 4.4 mmol/L (3.5-5.1); Sodium 132 mmol/L (136-145)
[2018-06-25] MEDS: Sodium Chloride 0.9% 1,000 ML IV SCH ×2 (00:05→14:13)
[2018-06-25 06:06] LABS: ALT (SGPT) 38 U/L (8-55); AST (SGOT) 40 U/L (5-34); Albumin 2.9 g/dL (3.5-5.0); Alkaline Phosphatase 220 U/L (40-150); Anion Gap 11 mmol/L (10-20); BUN (Urea Nitrogen) 7 mg/dL (9.8-20.1); Bilirubin, Total 0.3 mg/dL (0.2-1.2); Calc. Creatinine Clearance 100 mL/min (70-130); Calcium 8.3 mg/dL (7.8-10.44); Carbon Dioxide 19 mmol/L (22-29); Chloride 108 mmol/L (98-107); Estimated GFR-MDRD Greater than 90; Globulin 3.7 g/dL (2.4-3.5); Glucose 98 mg/dL (70-105); Potassium 3.8 mmol/L (3.5-5.1); Protein, Total 6.6 g/dL (6.0-8.3); Sodium 134 mmol/L (136-145)
[2018-06-25 06:32] LABS: Hemoglobin 10.3 g/dL (12.0-16.0); Mean Corpuscular HGB CONC 33.3 g/dL (32.0-36.0); Mean Corpuscular Hemoglobin 31.5 pg (27.0-31.0); Mean Corpuscular Volume 94.5 fL (78.0-98.0); Mean Platelet Volume 8.9 fL (7.4-10.4); Platelet Count 140 thou/uL (130-400); RBC Distribution Width 12.4 % (11.5-14.5); Red Blood Cell (RBC) Count 3.25 mill/uL (4.20-5.40); White Blood Cell (WBC) Count 7.1 thou/uL (4.8-10.8)
[2018-06-25 06:33] LABS: Band 4 % (5-11); Eosinophils 2 % (0-10); Lymphocytes 30 % (21-51); MDiff Complete? YES; Monocytes 10 % (0-10); Neutrophil 54 % (42-75); Ovalocytes MODERATE= 6-15 cells (100X) (0-1/hpf); PLT Morphology Comment Appears Adequate
[2018-06-25] MEDS ORDERED: Magnesium Sulfate 3 GM in Sodium Chloride 0.9% 100 ML IVPB SCH (07:00)
--- NOTE | 2018-06-25 07:04 | PDOC.FM ---
- Subjective Subjective: Pt is resting comfortably this am. She complains of loose stools yesterday and some abdominal cramping. Denies other symptoms such as fever, chills, malaise, blood in stool, n/v. No acute problems over night. - Objective MAR Reviewed: Yes Vital Signs & Weight: Vital Signs (12 hours) Temp Pulse Resp BP Pulse Ox 06/25/18 04:00 98.6 F 79 19 131/84 100 06/25/18 00:00 98.7 F 87 19 117/67 100 06/24/18 20:04 98.8 F 88 16 136/77 98 Weight Weight 65.3 kg I&O: 06/23/18 06/24/18 06/25/18 06:59 06:59 06:59 Intake Total 370 1560 2300 Balance 370 1560 2300 Result Diagrams: 06/25/18 05:40 06/25/18 05:40 <Grupo Hernandez - Last Filed: 06/25/18 06:56> - Objective Vital Signs & Weight: Vital Signs (12 hours) Temp Pulse Resp BP BP Pulse Ox 06/25/18 08:06 128/73 06/25/18 08:05 94 06/25/18 08:00 99.2 F 94 16 160/97 H 94 L 06/25/18 04:00 98.6 F 79 19 131/84 100 06/25/18 00:00 98.7 F 87 19 117/67 100 Weight Weight 65.3 kg I&O: 06/24/18 06/25/18 06/26/18 06:59 06:59 06:59 Intake Total 1560 2300 Balance 1560 2300 Result Diagrams: 06/25/18 05:40 06/25/18 05:40 <Anurag Villegas - Last Filed: 06/25/18 09:08> Phys Exam - Physical Examination Constitutional: NAD HEENT: moist MMs, sclera anicteric Neck: no JVD, full ROM Respiratory: clear to auscultation bilateral Cardiovascular: RRR, no significant murmur Gastrointestinal: soft, non-tender, no distention, positive bowel sounds Musculoskeletal: no edema Neurological: non-focal Psychiatric: normal affect Deviation from normal: A&O varies from 0-2 Skin: no rash <Grupo Hernandez Last Filed: 06/25/18 06:56> Dx/Plan (1) Diarrhea Code(s): R19.7 - DIARRHEA, UNSPECIFIED Status: Acute (2) Hypokalemia Code(s): E87.6 - HYPOKALEMIA Status: Acute (3) Hypomagnesemia Code(s): E83.42 - HYPOMAGNESEMIA Status: Acute (4) Hyponatremia Code(s): E87.1 - HYPO-OSMOLALITY AND HYPONATREMIA Status: Acute (5) Elevated AST (SGOT) Code(s): R74.0 - NONSPEC ELEV OF LEVELS OF TRANSAMNS & LACTIC ACID DEHYDRGNSE Status: Acute (6) Elevated alkaline phosphatase level Code(s): R74.8 - ABNORMAL LEVELS OF OTHER SERUM ENZYMES Status: Acute (7) NSTEMI (non-ST elevated myocardial infarction) Code(s): I21.4 - NON-ST ELEVATION (NSTEMI) MYOCARDIAL INFARCTION Status: Acute (8) Seizure disorder Code(s): G40.909 - EPILEPSY, UNSP, NOT INTRACTABLE, WITHOUT STATUS EPILEPTICUS Status: Acute (9) DM type 2 (diabetes mellitus, type 2) Status: Chronic (10) Hypertension Code(s): I10 - ESSENTIAL (PRIMARY) HYPERTENSION Status: Chronic Qualifiers: Hypertension type: essential hypertension Qualified Code(s): I10 - Essential (primary) hypertension - Plan Plan: Diarrhea - Has has 2-3 episodes over the past 24 hours. Negative C diff. Pt is well hydrated. Likely related to a viral gastroenteritis Hypokalemia - WNL this am Hypomagnesemia - replace iv Hyponatremia - resolved Elevated Alk phost and AST - GGT is elevated indicating a hepatic source. AMA is negative. This can be followed outpatient AMS - Pt appears to be at described baseline. She answers most questions appropriately and can hold a short conversation without repeating herself. Home antipsychotics have been restarted. - MRI is negative for acute problem. Does show old CVA NSTEMI - Cards is following., follow up 1 mo after discharge Hypertension - home meds Hx of CVA - continue statin SLE - appears to be controlled at this time dCHF - currently maintaining O2 sat, no concerns for acute exacerbation Schizoaffective disorder - restart home meds. Bipolar disorder - home meds HLD - continue statin GERD - home meds Dispo: Pt doing well and ready to dc today <Grupo Hernandez - Last Filed: 06/25/18 06:56> Attending Addendum - Attending Addendum Date/Time: 06/25/1807 I personally evaluated the patient and discussed the management with Dr. Hernandez. I agree with the History, Examination, Assessment and Plan documented above with any addition or exceptions noted below. Patient reports feeling well and is excited to go back to her facility. Her mood and affect is appropriate and she has been cleared by cardiology for discharge. Continue current meds on discharge, but will work to dispo patient today back to her facility in [place]. <Anurag Villegas - Last Filed: 06/25/18 09:08>
[2018-06-25] MEDS: Saccharomyces boulardii 250 MG CAP PO SCH (08:03)
[2018-06-25] MEDS: Pantoprazole 40 MG GRANULES PACKET PO SCH (08:03)
[2018-06-25] MEDS: Atorvastatin Calcium 40 MG TAB PO SCH (08:04)
[2018-06-25] MEDS: risperiDONE 1 MG TAB PO SCH (08:04)
[2018-06-25] MEDS: levETIRAcetam 500 MG TAB PO SCH (08:04)
[2018-06-25] MEDS: Lisinopril 5 MG TAB PO SCH (08:05)
[2018-06-25] MEDS: Carvedilol 6.25 MG TAB PO SCH ×2 (08:06→17:03)
[2018-06-25] MEDS: Acetaminophen 325 MG TAB PO PRN ×2 (08:45→17:03)
[2018-06-25] MEDS: Enoxaparin Sodium 60 MG/0.6 ML SYRINGE SC SCH (09:13)
[2018-06-25 11:57] VITALS: TEMP 98.1
--- NOTE | 2018-06-25 12:25 | PDOC.CTH ---
Cardiology Progress Note - Subjective Much more communicative but still confused and only oriented to person. She states she has pain all over. - Objective Vital Signs Temp Pulse Resp BP BP Pulse Ox 06/25/18 11:56 98.1 F 89 16 134/81 100 06/25/18 08:06 128/73 06/25/18 08:05 94 06/25/18 08:03 99.2 F 94 16 94 L 06/25/18 08:00 99.2 F 94 16 160/97 H 94 L 06/25/18 04:00 98.6 F 79 19 131/84 100 Weight 143 lb 15.39 oz 06/24/18 06/25/18 06/26/18 06:59 06:59 06:59 Intake Total 1560 2300 Balance 1560 2300 - Physical Examination General/Neuro: NAD Neck: no JVD present Lungs: CTA, unlabored respirations Heart: RRR Abdomen: NT/ND Extremities: other: (no edema) - Telemetry Telemetry Rhythm: NSR - Labs Result Diagrams: 06/25/18 05:40 06/25/18 05:40 Troponin/CKMB Troponin I 7.541 ng/mL (< 0.028) H* 06/22/18 22:38 - Assessment/Plan 1. NSTEMI 2. Seizures 3. Hyponatremia/hypokalemia 4. Lupus 5. AMS PLAN: - Continue conservative therapy unless mentation improves. - Still not a candidate for an invasive approach given her altered mentation and frail state and inability to follow instructions. If this improves in the future she will have to follow up with me to schedule a LHC at that time, otherwise continue medical therapy. - Continue BB and ACEI, Aspirin, statin. - Follow up in the office in 1 month if mentation improves. - Will sign off. Please call with any questions.
--- NOTE | 2018-06-25 15:00 | EKG ---
Test Reason : Blood Pressure : / mmHG Vent. Rate : 102 BPM Atrial Rate : 102 BPM P-R Int : 224 ms QRS Dur : 076 ms QT Int : 346 ms P-R-T Axes : 066 002 082 degrees QTc Int : 450 ms Sinus tachycardia with 1st degree A-V block Left ventricular hypertrophy with repolarization abnormality Nonspecific ST abnormality Abnormal ECG When compared with ECG of 22-JUN-2018 01:18, (Unconfirmed) OR interval has increased Nonspecific T wave abnormality now evident in Lateral leads Confirmed by MAGGY RICHTER MD ([id number]) on 06/25/2018 3:00:07 PM Referred By: DAVID JAVIER Confirmed By:MAGGY RICHTER MD
[2018-06-25 17:03] VITALS: BP 128/73
== END 2018-06-25 17:22 | DRG 281 ==
LOC: ERS 01:07 → IMCU/EMU 01:48 → 2SE 06-24 19:40
PROVIDERS: ADMIT Family Medicine; ATTEND Family Medicine
DX: I21.4 Non-ST elevation (NSTEMI) myocardial infarction (principal); I69.351 Hemiplegia and hemiparesis following cerebral infarction affecting right dominant side; E87.2 Acidosis; E87.1 Hypo-osmolality and hyponatremia; E87.6 Hypokalemia; F32.9 Major depressive disorder, single episode, unspecified; F41.9 Anxiety disorder, unspecified; R19.7 Diarrhea, unspecified; E83.42 Hypomagnesemia; E78.00 Pure hypercholesterolemia, unspecified; K21.9 Gastro-esophageal reflux disease without esophagitis; F25.9 Schizoaffective disorder, unspecified; F31.9 Bipolar disorder, unspecified; M19.90 Unspecified osteoarthritis, unspecified site; Z86.718 Personal history of other venous thrombosis and embolism; M32.9 Systemic lupus erythematosus, unspecified; G40.909 Epilepsy, unspecified, not intractable, without status epilepticus; I11.0 Hypertensive heart disease with heart failure; E11.65 Type 2 diabetes mellitus with hyperglycemia
CPT/HCPCS: 36415; 36416; 70551; 70553; 80053; 80061; 80177; 80185; 82977; 83036; 83516; 83605; 83630; 83735; 83930; 84145; 84300; 84484; 85025; 85730; 87324; 87449; 93005; 93010; 93306; 96365; 96366; 96375; A4216; G8996-GN-CI; G8996-GN-CK; G8997-GN-CI; J1644; J1650; J3475; J3480; J7050